=== PATIENT | male | born 1945 | race Caucasian/White ===

== ENCOUNTER → 2018-02-18 | Outpatient (CLI) | payer MEDICARE, BC ==
[2018-02-18 18:36] LABS: Basophils % (A) 0 %; Eosinophils # (A) 0.8 k/uL (0-0.7); Eosinophils % (A) 11 %; HCT 32.8 % (39.0-53.0); HGB 10.4 gm/dL (13.0-17.5); Hypochromasia Moderate; Lymphocytes # (A) 1.4 k/uL (1.0-4.8); Lymphocytes % (A) 19 %; MCH 27.8 pg (25.0-35.0); MCHC 31.7 g/dL (31.0-37.0); MCV 87.7 fL (80.0-100.0); Mean Platelet Volume 6.6; Monocytes # (A) 0.6 k/uL (0-1.0); Monocytes % (A) 8 %; Neutrophils # (A) 4.3 k/uL (1.3-7.7); Neutrophils % (A) 60 %; Platelet Count 437 k/uL (150-450); RBC 3.74 m/uL (4.30-5.90); RDW 13.8 % (11.5-15.5); WBC 7.1 k/uL (3.8-10.6)
[2018-02-18 20:16] LABS: Erythrocyte Sedimentation Rate 45 mm/hr (0-15)
[2018-02-19 02:48] LABS: Albumin 4.2 g/dL (3.80-4.90); Albumin/Globulin Ratio 1.62 (1.20-2.10); Calcium 9.5 mg/dL (8.7-10.3); Globulin 2.6 g/dL (2.1-3.7); Potassium 4.8 mmol/L (3.5-5.5); Total Bilirubin 0.3 mg/dL (0.2-1.2); Total Protein 6.8 g/dL (6.2-8.2)
[2018-02-19 02:55] LABS: Rheumatoid Factor 8 IU/mL (0-15)
[2018-02-19 03:14] LABS: Cyclic Citrullinated Pep IgG NEGATIVE (NEGATIVE)
[2018-02-20 04:23] LABS: Angiotensin-1 Converting Enz. 36 U/L (8-52)
[2018-02-20 14:36] LABS: C-ANCA <1:20 Titer (<1:20); P-ANCA <1:20 Titer (<1:20)
== END | disposition home or self-care (01) ==
LOC: LABWHC1 16:52
PROVIDERS: ATTEND Internal Medicine
DX: R91.8 Other nonspecific abnormal finding of lung field (principal)
CPT/HCPCS: 36415; 80053; 82164; 85025; 85652; 86038; 86200; 86235; 86255; 86431

== ENCOUNTER → 2018-04-17 | Outpatient (CLI) | payer MEDICARE, BC ==
--- NOTE | 2018-04-17 15:48 | CT ---
EXAMINATION TYPE: CT chest w con DATE OF EXAM: 04/17/2018 COMPARISON: None HISTORY: Nodules CT DLP: 453.2 mGycm Automated exposure control for dose reduction was used. CONTRAST: CT scan of the chest is performed with IV Contrast, patient injected with 100 mL of Isovue 300. FINDINGS: LUNGS: Nodular density right upper lobe measuring 1.7 x 1.6 cm. Right upper lobe medially noted is an 8.3 mm nodule. Pleural-based soft tissue left upper lobe anteriorly measuring 4.0 x 2.1 cm.Pleural-b ased nodule left lower lobe medially measuring 2.4 x 2.0 cm. Postsurgical changes of partial pneumone ctomy on the left. The lungs are otherwise clear. MEDIASTINUM: There are no greater than 1 cm hilar or mediastinal lymph nodes. No pericardial effusi on is seen. Thoracic aorta is of normal caliber. The heart is not enlarged. UPPER ABDOMEN: No significant abnormality appreciated. OTHER: No additional significant abnormality is seen. IMPRESSION: 1. Postsurgical changes of partial left-sided pneumonectomy with areas of masslike pleural thickening and pleural-based nodularity left lung. Right lung demonstrates nodular densities as discussed. Queta gnancy is not excluded. Consider PET/CT, tissue diagnosis and/or short-term 3 month follow-up.
== END | disposition home or self-care (01) ==
LOC: RADCTMAIN 08:08
PROVIDERS: ATTEND Internal Medicine
DX: R91.8 Other nonspecific abnormal finding of lung field (principal); Z90.2 Acquired absence of lung [part of]
CPT/HCPCS: 82565; 84520; 71260; 36415; Q9967

== ENCOUNTER → 2018-04-23 | Outpatient (CLI) | payer MEDICARE, BC ==
[2018-04-24 05:05] LABS: HIV 1 AB Non-Reactive (Non-Reactive); HIV AB P24 Non-Reactive (Non-Reactive); HIV P24 AG Non-Reactive (Non-Reactive)
== END | disposition home or self-care (01) ==
LOC: LABWHC1 16:23
PROVIDERS: ATTEND Internal Medicine Infectious Disease
DX: R91.1 Solitary pulmonary nodule (principal)
CPT/HCPCS: 36415; 82784; 86360; 87390

== ENCOUNTER → 2018-08-17 | Outpatient (CLI) | payer MEDICARE, BC ==
[2018-08-17 10:50] LABS: Blood Urea Nitrogen 14 mg/dL (9-20)
--- NOTE | 2018-08-17 11:20 | CT ---
EXAMINATION TYPE: CT chest w con DATE OF EXAM: 08/17/2018 COMPARISON: Prior chest CT April 17, 2018. HISTORY: Abnormal prior CT. CT DLP: 516.6 mGycm. Automated Exposure Control for Dose Reduction was Utilized. TECHNIQUE: CT scan of the thorax is performed following with IV Contrast, patient injected with 100 mL of Isovue 300. FINDINGS: LUNGS: Scarlike nodule or nodular opacification posterior right upper lobe is stable measuring 2.9 x 1.1 cm axial image 22 accounting for technical differences as it is difficult to actually measure due to the elongated appearance. There is additional linear scarring in the superior medial right lower lobe redemonstrated just inferior to this. Small nodule abutting mediastinum axial image 22 anteriorl y is less prominent. Pleural-based thickening or nodularity axial image 25 is less prominent measuring 1.8 x 0.8 cm curren t study. Postsurgical change left mid lung anteriorly with nodular scarring axial image 35 measuring 1.6 x 0.8 cm is stable. Posterior medial left basilar masslike scarring is diminished in size on prio r study image 48 versus prior with inferior lateral extension to diaphragm redemonstrated. No new nod ules or masses are present. No pleural effusion or pneumothorax is noted. MEDIASTINUM: There are no greater than 1 cm hilar or mediastinal lymph nodes. No pericardial effusi on is seen. Stable mild cardiomegaly. Calcifications at level of aortic valve are redemonstrated. Th ere is severe calcification or stent in the LAD again seen. OTHER: Cholecystectomy clips are redemonstrated. IMPRESSION: Interval stability or improvement as detailed above favoring posttreatment change and/or treated neoplasm. No new suspicious masses or adenopathy or enlarging lesions identified to suggest n eoplastic recurrence. If older outside CT or PET CT is not available would advise repeat CT in 6-12 m onths time to document further stability.
[2018-08-17 18:04] LABS: Hepatitis A Antibody IgM Non-Reactive (Non-Reactive); Hepatitis B Core IgM Non-Reactive (Non-Reactive)
== END | disposition home or self-care (01) ==
LOC: RADCTMAIN 09:37
PROVIDERS: ATTEND Internal Medicine
DX: R91.8 Other nonspecific abnormal finding of lung field (principal); D86.9 Sarcoidosis, unspecified; Z98.890 Other specified postprocedural states
CPT/HCPCS: 80074; 82565; 84520; 71260; Q9967

== ENCOUNTER → 2018-12-30 | Outpatient (CLI) | payer MEDICARE, BC ==
--- NOTE | 2018-12-30 16:40 | CT ---
EXAMINATION TYPE: CT chest w con DATE OF EXAM: 12/30/2018 COMPARISON: Prior chest CT August 17, 2018 and older study April 17, 2018. Chest x-ray December 10, 2018. HISTORY: Cough and difficulty breathing. Recent abnormal chest x-ray. CT DLP: 530 mGycm. Automated Exposure Control for Dose Reduction was Utilized. TECHNIQUE: CT scan of the thorax is performed following with IV Contrast, patient injected with 100m l mL of Isovue 300. FINDINGS: LUNGS: Corresponding to chest x-ray abnormality there is persistent prominent pericardial fat pad ata ng the left heart border with linear density or calcification. There is adjacent anterior left mid to lower lung linear scarring. There is posterior medial left basilar linear scarring with linear densi ty. Stable 3 mm subpleural left lower lobe nodule axial image 38. Stable posterior right upper lung s car like opacity axial image 19 measuring nearly 2 cm long axis. No pleural effusion or pneumothorax. MEDIASTINUM: There are no greater than 1 cm hilar or mediastinal lymph nodes. No pericardial effusi on is seen. Stable mild cardiomegaly. Mild calcification at level of aortic valve redemonstrated. Co ronary artery calcification and/or stents again seen. OTHER: Cholecystectomy clips are redemonstrated. IMPRESSION: Overall stable findings, chronic changes redemonstrated. No new concerning mass or adenop athy noted.
== END | disposition home or self-care (01) ==
LOC: RADCTMAIN 15:22
PROVIDERS: ATTEND Internal Medicine
DX: R91.8 Other nonspecific abnormal finding of lung field (principal); Z88.0 Allergy status to penicillin; Z88.6 Allergy status to analgesic agent
CPT/HCPCS: 82565; 84520; 71260; 36415; Q9967

== ENCOUNTER → 2019-01-04 | Outpatient (CLI) | payer MEDICARE, BC ==
[2019-01-04 22:53] LABS: Cat Epith & Dander IgE <0.10 kU/L; Dermato. farinae IgE <0.10 kU/L; Dog Dander IgE <0.10 kU/L
[2019-01-04 22:54] LABS: Aspergillus fumagatus IgE <0.10 kU/L; Cladosporian herbarum IgE <0.10 kU/L; Cockroach IgE 0.37 kU/L
[2019-01-04 22:55] LABS: Alternaria alternata IgE <0.10 kU/L; Birch IgE <0.10 kU/L; Maple (Box Elder) IgE <0.10 kU/L
[2019-01-04 22:56] LABS: Elm IgE <0.10 kU/L; Oak IgE <0.10 kU/L
[2019-01-04 22:57] LABS: Ragweed,Common IgE <0.10 kU/L
[2019-01-04 22:58] LABS: Red Top (Bentgrass) IgE <0.10 kU/L
== END | disposition home or self-care (01) ==
LOC: LABWHC1 11:23
PROVIDERS: ATTEND Internal Medicine Critical Care Medicine
DX: R06.00 Dyspnea, unspecified (principal)
CPT/HCPCS: 36415; 82164; 82785; 86003

== ENCOUNTER → 2019-02-09 | Outpatient (CLI) | payer MEDICARE, BC ==
--- NOTE | 2019-02-09 11:18 | ECHOF ---
Referral Reason:I27.20 pulmonary hypertension MEASUREMENTS -------- HEIGHT: 180.3 cm WEIGHT: 101.2 kg BP: 158/82 RVIDd: 3.4 cm (< 3.3) IVSd: 1.4 cm (0.6 - 1.1) LVIDd: 3.2 cm (3.9 - 5.3) LVPWd: 1.3 cm (0.6 - 1.1) IVSs: 1.7 cm LVIDs: 2.7 cm LVPWs: 1.7 cm LA Diam: 3.5 cm (2.7 - 3.8) LAESV Index (A-L): 16.12 ml/m Ao Diam: 3.4 cm (2.0 - 3.7) AV Cusp: 2.1 cm (1.5 - 2.6) MV EXCURSION: 15.965 mm (> 18.000) MV EF SLOPE: 24 mm/s (70 - 150) EPSS: 0.6 cm MV E Devin: 0.39 m/s MV DecT: 436 ms MV A Devin: 0.62 m/s MV E/A Ratio: 0.63 RAP: 5.00 mmHg RVSP: 23.88 mmHg TAPSE: 14.84 mm FINDINGS -------- Sinus rhythm. This was a technically adequate study. The left ventricular size is normal. There is moderate concentric left ventricular hypertrophy. O verall left ventricular systolic function is normal with, an EF between 55 - 60 %. The right ventricle is mildly enlarged. Normal LA size by volume 22+/-6 ml/m2. The right atrium is normal in size. Lipomatous Hypertrophy of the atrial septum is present There is mild aortic valve sclerosis. Mild mitral regurgitation is present. Mild tricuspid regurgitation present. Right ventricular systolic pressure is normal at < 35 mmHg. The pulmonic valve was not well visualized. The aortic root size is normal. IVC Not well visulized. There is no pericardial effusion. CONCLUSIONS -------- 1. Sinus rhythm. 2. This was a technically adequate study. 3. The left ventricular size is normal. 4. There is moderate concentric left ventricular hypertrophy. 5. Overall left ventricular systolic function is normal with, an EF between 55 - 60 %. 6. The right ventricle is mildly enlarged. 7. Normal LA size by volume 22+/-6 ml/m2. 8. The right atrium is normal in size. 9. Lipomatous Hypertrophy of the atrial septum is present 10. There is mild aortic valve sclerosis. 11. Mild mitral regurgitation is present. 12. Mild tricuspid regurgitation present. 13. Right ventricular systolic pressure is normal at < 35 mmHg. 14. The pulmonic valve was not well visualized. 15. The aortic root size is normal. 16. IVC Not well visulized. 17. There is no pericardial effusion. RIGGING UP WORKER: Diane Barnett RDCS
== END | disposition home or self-care (01) ==
LOC: RADECHMAIN 10:12
PROVIDERS: ATTEND Internal Medicine
DX: I08.1 Rheumatic disorders of both mitral and tricuspid valves (principal); I27.20 Pulmonary hypertension, unspecified
CPT/HCPCS: 93306

== ENCOUNTER → 2019-02-17 | Outpatient (CLI) | payer MEDICARE, BC ==
[2019-02-17 14:17] LABS: HCT 38.1 % (39.0-53.0); MCHC 31.5 g/dL (31.0-37.0); Mean Platelet Volume 6.7; Platelet Count 317 k/uL (150-450); RBC 4.28 m/uL (4.30-5.90); WBC 16.7 k/uL (3.8-10.6)
[2019-02-17 14:35] LABS: Potassium 4.9 mmol/L (3.5-5.1)
== END | disposition home or self-care (01) ==
LOC: LABPAT 13:05
PROVIDERS: ATTEND Internal Medicine Interventional Cardiology
DX: Z01.812 Encounter for preprocedural laboratory examination (principal); I25.10 Atherosclerotic heart disease of native coronary artery without angina pectoris
CPT/HCPCS: 36415; 80051; 82565; 84520; 85027

== ENCOUNTER 2019-02-23 07:44 | Day surgery (SDC) | payer MEDICARE, BC ==
[2019-02-19 14:56] VITALS: BMI 31.2
[~2019-02-23 07:44] MED LIST: ALPRAZolam 0.25 MG TAB PO PRN; ALPRAZolam 0.5 MG TAB PO PRN; ASPIRIN 325 MG TAB PO STA; ATORVASTATIN 80 MG TAB PO STA; NITROGLYCERIN SL TABS 0.4 MG TAB SUBLINGUAL PRN; SODIUM CHLORIDE 0.9% 1,000 ML in EMPTY BAG 1 BAG IV ONE
[2019-02-23 08:20] VITALS: TEMP 97.7
[2019-02-23] MEDS ORDERED: SODIUM CHLORIDE 0.9% 1,000 ML IV ONE (08:21)
[2019-02-23] MEDS ORDERED: LIDOCAINE 1% INJ 10MG/ML (20 ML MDV) ONE ×2 (08:34→09:25)
[2019-02-23] MEDS: MIDAZOLAM 2 MG/2 ML VIAL IV ONE ×2 (08:58→09:02)
[2019-02-23] MEDS ORDERED: LIDOCAINE 1% INJ 10MG/ML (20 ML MDV) SQ ONE ×3 (08:59→09:26)
[2019-02-23] MEDS ORDERED: MIDAZOLAM 2 MG/2 ML VIAL IV ONE (09:08)
[2019-02-23] MEDS ORDERED: IOPAMIDOL-370 125ML BTL INJ ONE (09:24)
[2019-02-23] MEDS ORDERED: RX INFO: IV CONTRAST WAS GIVEN 1 EACH MISC MISCELLANE PRN (09:39)
[2019-02-23] MEDS ORDERED: SODIUM CHLORIDE 0.9% 1,000 ML IV SCH (09:45)
--- NOTE | 2019-02-23 09:47 | P.CARDCATH ---
Date of Procedure: 02/23/19 Operative Findings: CARDIAC CATHETERIZATION PERFORMING PHYSICIAN: Gonzales Bobo MD, RPVI PROCEDURE PERFORMED: 1. Selective right and left coronary angiogram 2. Left heart catheterization 3. Right heart catheterization3. INDICATION: This is a pleasant 73-year-old gentleman with history of coronary artery disease and prior stenting of the LAD was performed at [facility] who was referred to me for further evaluation of shortness of breath. The patient continues to have shortness of breath with exertion which was felt to be out of proportion to his lung condition. He sees a liner assembler on regular basis, Dr. Beauchamp. Also he was experiencing chest discomfort with exertion concerning for severe underlying coronary artery disease. Because of that I did recommend proceeding with right and left heart catheterization COMPLICATION: None APPROACH: Right common femoral vein Right common femoral artery LEVEL OF SEDATION: Moderate with sedation duration of 30 minutes PROCEDURE DESCRIPTION: After obtaining an informed consent, the patient was brought to cardiac phlebotomist lab assistant. Local anesthesia was performed using lidocaine subcutaneously. The right common femoral vein was cannulated using micropuncture technique, the micropuncture wire passed easily then I placed an 8-Indonesian sheath over 035 wire. The right common femoral artery was cannulated using Seldinger technique, the guidewire passed easily, following that we advanced a 6 Indonesian sheath dilator assembly, the wire and dilator were removed and sheath was flushed. Subsequently I didn't right heart catheterization using 8-Indonesian [place] catheter. I had heart time advancing the catheter towards the pulmonary artery. Selective right and left coronary angiogram using a 6-Indonesian JR4 and JL catheters. Following that we did left heart catheterization using 6-Indonesian pigtail catheter . The procedure was completed there was no complication. SELECTIVE CORONARY ANGIOGRAM: The right coronary artery: The large caliber vessel and a dominant vessel. The RCA has mild disease in the proximal portion. The mid and distal portion appears to be angiographically normal. The RCA distally bifurcates into PDA and PLV branches and both appeared to be angiographically normal Left main: Is angiographically normal. Bifurcates into LCx, and LAD. The left circumflex: He is a large caliber vessel and nondominant vessel. It does have mild disease involving M2. OM1 is a large caliber vessel and work as a ramus intermedius and seems to be angiographically normal. Warm 3 appeared to be angiographically normal. The left anterior descending artery: It is a large caliber vessel. The proximal LAD appeared to be angiographically normal. The mid LAD is a stented and the stent is patent. The LAD distally appeared to be normal. The LAD in the midportion gives rises into a large diagonal branch which has an ostial disease appears to be in the range of 40% to 50%. HEMODYNAMICS: The right ventricular pressures were as follow systolic of 24 and end-diastolic of 6 mmHg The right atrial pressure was 5 mmHg The LVEDP was 8 mmHg CONCLUSION: 1. Normal right heart pressures 2. Patent stent in the mid LAD. Intermediate disease involving the first diagonal branch of the LAD. 3. Mild disease involving the right coronary artery POSTPROCEDURE MANAGEMENT: Giving the above anatomy, I recommended maximize medical treatment and follow-up with the patient
[2019-02-23 17:15] VITALS: BP 114/69; PULSE 70; RESP 16
== END 2019-02-23 17:10 | disposition home or self-care (01) ==
LOC: CATHCVL 07:44
PROVIDERS: ATTEND Internal Medicine Interventional Cardiology
DX: I25.110 Atherosclerotic heart disease of native coronary artery with unstable angina pectoris (principal); I10 Essential (primary) hypertension; Z87.891 Personal history of nicotine dependence; E78.5 Hyperlipidemia, unspecified; E78.00 Pure hypercholesterolemia, unspecified; Z95.5 Presence of coronary angioplasty implant and graft; J44.9 Chronic obstructive pulmonary disease, unspecified; Z82.49 Family history of ischemic heart disease and other diseases of the circulatory system; Z79.02 Long term (current) use of antithrombotics/antiplatelets; Z79.82 Long term (current) use of aspirin; Z79.52 Long term (current) use of systemic steroids; Z79.899 Other long term (current) drug therapy; Z88.0 Allergy status to penicillin
CPT/HCPCS: 93460; C1751; C1894 ×2; C1769; C1760; J2250; J2001; Q9967

== ENCOUNTER → 2019-12-15 | Outpatient (CLI) | payer MEDICARE, BC ==
--- NOTE | 2019-12-15 17:36 | CT ---
EXAMINATION TYPE: CT chest w con DATE OF EXAM: 12/15/2019 COMPARISON: CT chest 12/30/2018 HISTORY: Sarcoidosis. CT DLP: 710 mGycm Automated exposure control for dose reduction was used. CONTRAST: CT scan of the chest is performed with IV Contrast, patient injected with 100 mL of Isovue 300. FINDINGS: LUNGS: There is a soft tissue mass abutting the mediastinum at the right upper hemithorax measuring a pproximately 3.4 x 2.5 x 2.6 cm. Posteriorly along the fissure there is some probable scarring simila r to prior exam although there is some questionable nodularity at this level measuring 13 mm on axial image #18 the left lower lobe shows a nodular density in the subpleural location on axial image #44 measuring 2.5 cm, question an associated staple line at this level, there is volume loss in the left hemithorax, postop changes. There is no pleural effusion or pneumothorax seen. The tracheobronchial tree is patent. MEDIASTINUM: There are no greater than 1 cm hilar or mediastinal lymph nodes. No pericardial effusi on is seen. There are dense coronary artery calcifications. AORTA: No additional significant abnormality is seen. OTHER: No additional significant abnormality is seen. IMPRESSION: Bilateral soft tissue masses are new, consider bronchogenic carcinoma, metastatic diseas e, postop changes, correlate.
== END | disposition home or self-care (01) ==
LOC: RADCTMAIN 15:14
PROVIDERS: ATTEND Internal Medicine
DX: M79.89 Other specified soft tissue disorders (principal); D86.0 Sarcoidosis of lung
CPT/HCPCS: 82565; 84520; 71260; 36415; Q9967

== ENCOUNTER → 2019-12-16 | Outpatient (CLI) | payer MEDICARE, BC ==
[2019-12-16 13:54] LABS: Basophils % (A) 0 %; Eosinophils # (A) 0.1 k/uL (0-0.7); Eosinophils % (A) 1 %; HGB 10.9 gm/dL (13.0-17.5); Hypochromasia Moderate; Lymphocytes % (A) 9 %; MCH 24.8 pg (25.0-35.0); MCHC 30.3 g/dL (31.0-37.0); MCV 81.9 fL (80.0-100.0); Mean Platelet Volume 8.7; Monocytes # (A) 0.9 k/uL (0-1.0); Monocytes % (A) 8 %; Neutrophils % (A) 81 %; Platelet Count 252 k/uL (150-450); RDW 14.5 % (11.5-15.5); WBC 11.1 k/uL (3.8-10.6)
[2019-12-16 19:17] LABS: African American GFR (CKD) 86.2 (60.0-200.0); Albumin 4.1 g/dL (3.80-4.90); Albumin/Globulin Ratio 1.71 (1.60-3.17); Anion Gap 6.8 mmol/L (4.00-12.00); Calcium 9.6 mg/dL (8.7-10.3); Carbon Dioxide 27.2 mmol/L (21.6-31.8); Globulin 2.4 g/dL (1.6-3.3); Non-African American GFR(CKD) 74.3 (60.0-200.0); Potassium 4.4 mmol/L (3.5-5.5); Total Bilirubin 0.5 mg/dL (0.3-1.2); Total Protein 6.5 g/dL (6.2-8.2)
[2019-12-16 19:37] LABS: Erythrocyte Sedimentation Rate 13 mm/Hr (0-20)
== END | disposition home or self-care (01) ==
LOC: LABWHC1 12:41
PROVIDERS: ATTEND Internal Medicine Critical Care Medicine
DX: D86.0 Sarcoidosis of lung (principal)
CPT/HCPCS: 36415; 80053; 82164; 85025; 85652

== ENCOUNTER → 2020-04-17 | Outpatient (CLI) | payer MEDICARE, BC ==
--- NOTE | 2020-04-17 12:55 | CT ---
EXAMINATION TYPE: CT chest w con DATE OF EXAM: 04/17/2020 COMPARISON: CT chest December 15, 2019 and older studies HISTORY: Sarcoidosis of lung. CT DLP: 420.6 mGycm. Automated Exposure Control for Dose Reduction was Utilized. TECHNIQUE: CT scan of the thorax is performed following with IV Contrast, patient injected with 100 mL of Isovue M300. FINDINGS: LUNGS: Parenchymal scarring lung posterior aspect right upper lobe extending towards the right suprah ilar region is redemonstrated. There is improved focal mass or masslike consolidation in the anterior right upper lobe with some residual 2.4 x 1.1 cm nodule or nodular consolidation axial image 19. Adriana gical changes medial in the left mid to lower lung redemonstrated. There is additional surgical kapoor e in the posterior left lung base with resolution of prior visualized nodule or nodular consolidation . No new infiltrate. No pleural effusion or pneumothorax. MEDIASTINUM: There are no new greater than 1 cm hilar or mediastinal lymph nodes. No cardiomegaly o r pericardial effusion is seen. Coronary artery calcification is redemonstrated. Calcified suture in the mediastinal fat along the superior left aspect of the heart is redemonstrated. OTHER: Cholecystectomy clips are redemonstrated. Slight underlying scoliotic curvature with mild/mode rate multilevel spurring. IMPRESSION: Stable parenchymal fibrotic changes. No thoracic adenopathy. Improving bilateral nodules and/or nodular consolidation but some residual suspicious nodule or nodular consolidation anterior ri ght upper lobe. Consider PET CT evaluation to exclude neoplasm.
== END | disposition home or self-care (01) ==
LOC: RADCTMAIN 10:53
PROVIDERS: ATTEND Internal Medicine
DX: J84.10 Pulmonary fibrosis, unspecified (principal); R91.8 Other nonspecific abnormal finding of lung field; Z88.0 Allergy status to penicillin; Z88.5 Allergy status to narcotic agent
CPT/HCPCS: 82565; 84520; 71260; 36415; Q9967

== ENCOUNTER → 2020-07-07 | Outpatient (CLI) | payer MEDICARE, BC | END | disposition home or self-care (01) | LOC: LABWHC1 11:46 | PROVIDERS: ATTEND Internal Medicine | DX: R42 Dizziness and giddiness (principal) | CPT/HCPCS: 36415; 82607 ==

== ENCOUNTER → 2020-09-12 | Outpatient (CLI) | payer MEDICARE, BC ==
[2020-09-12 16:35] LABS: HCT 38.7 % (39.6-50.0); HGB 11.4 g/dL (13.0-17.0); MCH 25.3 pg (27.0-32.0); MCHC 29.5 g/dL (32.0-37.0); Mean Platelet Volume 12.3 fL (9.5-12.2); Platelet Count 266 X 10*3/uL (140-440); RDW 22.1 % (11.5-14.5); WBC 8.49 X 10*3/uL (4.50-10.00)
[2020-09-12 17:06] LABS: African American GFR (CKD) 76.8 (60.0-200.0); Albumin 4.3 g/dL (3.80-4.90); Albumin/Globulin Ratio 1.95 (1.60-3.17); Anion Gap 7.1 mmol/L (4.00-12.00); BUN/Creat Ratio 13.64 Ratio (12.00-20.00); Calcium 9.8 mg/dL (8.7-10.3); Carbon Dioxide 27.9 mmol/L (21.6-31.8); Chol/HDL Ratio 2.53; Globulin 2.2 g/dL (1.6-3.3); Magnesium 1.8 mg/dL (1.5-2.4); Non-African American GFR(CKD) 66.2 (60.0-200.0); Potassium 5.1 mmol/L (3.5-5.5); Total Bilirubin 0.5 mg/dL (0.3-1.2); Total Protein 6.5 g/dL (6.2-8.2)
[2020-09-12 17:35] LABS: Basophils # (A) 0.03 X 10*3/uL (0.00-0.10); Basophils % (A) 0.4 %; Eosinophils # (A) 0.15 X 10*3/uL (0.04-0.35); Eosinophils % (A) 1.8 %; Lymphocytes % (A) 15.3 %; Monocytes # (A) 0.74 X 10*3/uL (0.20-1.00); Monocytes % (A) 8.7 %; Neutrophils # (A) 6.23 X 10*3/uL (1.80-7.70); Neutrophils % (A) 73.3 %
== END | disposition home or self-care (01) ==
LOC: LABWHC1 08:11
PROVIDERS: ATTEND Nurse Practitioner Adult Health
DX: I10 Essential (primary) hypertension (principal); I25.10 Atherosclerotic heart disease of native coronary artery without angina pectoris; E78.5 Hyperlipidemia, unspecified
CPT/HCPCS: 36415; 80053; 80061; 83735; 84443; 84481; 85025

== ENCOUNTER → 2021-03-01 | Outpatient (CLI) | payer MEDICARE, BC ==
--- NOTE | 2021-03-01 15:59 | CT ---
EXAMINATION TYPE: CT chest w con DATE OF EXAM: 03/01/2021 COMPARISON: 04/17/2020 HISTORY: Sarcoidosis CT DLP: 645 mGycm, Automated exposure control for dose reduction was used. CONTRAST: Performed injected with 100 ml mL of Isovue 300. TECHNIQUE: Axial images were obtained at 5 mm thick sections. Reconstructed images are reviewed on [employer] computer in the coronal plane. FINDINGS: Portion of the thyroid visualized is normal. There is some mild streak opacity at the right posterior lung apex. There is a 1.9 x 2.5 cm soft tissue nodule in the posterior medial left lower lung field. This has en larged from the comparison. Additional workup for neoplasm is recommended. Previous density within the anterior medial right upper lung field has residual linear markings. This is diminished in size from comparison. No enlarged mediastinal or hilar adenopathy is evident. The ascending aorta diameter at the level o f the main pulmonary artery is 2.7 cm. The main pulmonary artery diameter at the bifurcation is 2.5 cm. Some coronary artery calcification is noted. Limited CT sections are obtained through the upper abdomen. Abdomen is essentially unremarkable. IMPRESSIONS: 1. Enlarging posterior left lung nodule. Additional workup for neoplasm is recommended. 2. Residual streak opacities within the right upper lung field, previous underlying right upper lobe mass appears to be resolving.
== END ==
LOC: RADCTMAIN 11:56
PROVIDERS: ATTEND Internal Medicine
DX: D86.0 Sarcoidosis of lung (principal); R91.8 Other nonspecific abnormal finding of lung field
CPT/HCPCS: 82565; 84520; 71260; 36415; Q9967

== ENCOUNTER → 2022-03-20 | Outpatient (CLI) | payer MEDICARE, BC ==
--- NOTE | 2022-03-20 14:39 | XR ---
EXAMINATION TYPE: XR chest 2V DATE OF EXAM: 03/20/2022 COMPARISON: 08/17/2021 TECHNIQUE: PA and lateral views submitted. HISTORY: Pulmonary sarcoidosis FINDINGS: Heart size is normal. Osseous structures intact. Atherosclerotic change aorta. There is left perihila r vague attenuation. No pleural effusion or pneumothorax. No interstitial edema. IMPRESSION: 1. There is vague left perihilar atelectasis or infiltrate consider follow-up CT scan if clinically w arranted.
== END | disposition home or self-care (01) ==
LOC: RADXRMAIN 14:25
PROVIDERS: ATTEND Internal Medicine Pulmonary Disease
DX: D86.0 Sarcoidosis of lung (principal)
CPT/HCPCS: 71046

== ENCOUNTER → 2022-07-04 | Outpatient (CLI) | payer MEDICARE, BC ==
[2022-07-04 22:50] LABS: HCT 36.9 % (39.6-50.0); HGB 10.8 g/dL (13.0-17.0); MCH 24.9 pg (27.0-32.0); MCHC 29.3 g/dL (32.0-37.0); NRBC Per 100 WBC 0 /100 WBCS (0.0-0.0); Platelet Count 314 X 10*3/uL (140-440); RBC 4.34 X 10*6/uL (4.40-5.60); RDW 15.5 % (11.5-14.5); WBC 7.42 X 10*3/uL (4.50-10.00)
[2022-07-04 23:15] LABS: African American GFR (CKD) 79.2 (60.0-200.0); Anion Gap 8.7 mmol/L (10.00-18.00); Blood Urea Nitrogen 19.2 mg/dL (9.0-27.0); Carbon Dioxide 27.4 mmol/L (20.0-27.5); Non-African American GFR(CKD) 68.3 (60.0-200.0); Potassium 4.9 mmol/L (3.5-5.5)
== END | disposition home or self-care (01) ==
LOC: LABPAT 14:27
PROVIDERS: ATTEND Internal Medicine Interventional Cardiology
DX: Z01.812 Encounter for preprocedural laboratory examination (principal); R06.02 Shortness of breath
CPT/HCPCS: 80051; 82565; 84520; 85027

== ENCOUNTER 2022-07-10 12:00 | Day surgery (SDC) | payer MEDICARE, BC ==
[~2022-07-10 12:00] MED LIST changes: +ASPIRIN 325 MG TAB PO ONE; -ASPIRIN 325 MG TAB PO STA; -ATORVASTATIN 80 MG TAB PO STA; -SODIUM CHLORIDE 0.9% 1,000 ML in EMPTY BAG 1 BAG IV ONE
[2022-07-10] MEDS: SODIUM CHLORIDE 0.9% 1,000 ML in EMPTY BAG 1 BAG IV SCH ×2 (12:26→20:24)
[2022-07-10] MEDS ORDERED: SODIUM CHLORIDE 0.9% 1,000 ML IV ONE (17:00)
[2022-07-10] MEDS ORDERED: VERAPAMIL 2.5 MG/ML 2 ML AMP ONE (18:10)
[2022-07-10] MEDS ORDERED: fentaNYL (PF) 50 MCG/ML 2 ML AMP ONE (18:22)
[2022-07-10] MEDS ORDERED: LIDOCAINE 1% INJ 10MG/ML (5 ML VIAL-PF) SQ ONE (18:31)
[2022-07-10] MEDS ORDERED: VERAPAMIL SYRINGE (5 MG/10 ML) INTRAARTER ONE (18:32)
[2022-07-10] MEDS ORDERED: MIDAZOLAM 2 MG/2 ML VIAL IV ONE (18:32)
[2022-07-10] MEDS ORDERED: LIDOCAINE 1% INJ 10MG/ML (20 ML MDV) ONE (18:41)
[2022-07-10] MEDS ORDERED: fentaNYL (PF) 50 MCG/ML 2 ML AMP IV ONE (18:45)
[2022-07-10] MEDS ORDERED: IOPAMIDOL-370 125ML BTL INJ ONE (18:51)
[2022-07-10] MEDS ORDERED: RX INFO: IV CONTRAST WAS GIVEN 1 EACH MISC MISCELLANE PRN (19:06)
--- NOTE | 2022-07-10 19:12 | P.PCN ---
Date of Procedure: 07/10/22 Operative Findings: CARDIAC CATHETERIZATION PERFORMING PHYSICIAN: Gonzales Bobo MD, RPVI PROCEDURE PERFORMED: 1. Selective right and left coronary angiogram 2. Left heart catheterization 3. Selective right radial and right common femoral artery angiogram INDICATION: Shortness of breath and 76-year-old gentleman who underwent myocardial perfusion imaging stress test showed anterolateral ischemia COMPLICATION: None APPROACH: Right radial artery LEVEL OF SEDATION: Moderate with a sedation length of 27 minutes PROCEDURE DESCRIPTION: After obtaining an informed consent, the patient was brought to cardiac feed mill lab technician. Local anesthesia was performed using lidocaine subcutaneously. The right radial artery was cannulated using Seldinger technique, the guidewire passed easily, following that we advanced a 5-Jordanian sheath dilator assembly, the wire and dilator were removed and sheath was flushed. Attempting advancing an 035 wire was unsuccessful at the right brachial artery. I did inject contrast but the radial artery becomes a small. The catheter would not follow the wire. For that reason I accessed the right common femoral artery using micropuncture technique, the micropuncture wire passed easily then I placed a 6-Jordanian sheath. Selective right and left coronary angiogram using a 6-Jordanian JR4 and JL 4 catheters. Following that we did left heart catheterization using 6-Jordanian pigtail catheter. The procedure was completed there was no complication. SELECTIVE CORONARY ANGIOGRAM: The right coronary artery: Large caliber vessel and a dominant vessel. The RCA proximally appears to have mild disease only. In the midportion appears to be angiographically normal and distally is angiographically normal. Gives rises after that into PDA and PLV branches. The PLV branch appears to have mild disease only. The PDA branch has diffuse disease up to about 60% in the midportion. Left main: Is angiographically normal. Bifurcates into an LCx and LAD The left circumflex: Large caliber vessel nondominant vessel. The LCx is angiographically normal. Gives rises into OM1 and OM to both appeared to be angiographically normal. Distally bifurcates into PDA and PLV branches both appeared to be angiographically normal. The left anterior descending artery: The proximal LAD appeared to have mild disease only. The mid LAD is a stented and the stent is patent. The LAD in the midportion gives rises into a diagonal branch which appeared to be jailed by the stent and has an ostial lesion appeared to be in the range of 60%. HEMODYNAMICS: The LVEDP was about 6 mmHg was no significant gradient across aortic valve CONCLUSION: 1. Intermediate disease involving the PDA branch of the right coronary artery appears to be in the range of 60% 2. Patent stent in the mid LAD. Intermediate disease involving the first diagonal branch of the LAD which has jailed by the stent POSTPROCEDURE MANAGEMENT: Medical treatment Consider FFR of the PDA if the patient remains symptomatic
[2022-07-10] MEDS ORDERED: SODIUM CHLORIDE 0.9% 1,000 ML IV SCH (19:15)
[2022-07-11 03:07] VITALS: PULSE 58
[2022-07-11] MEDS: SODIUM CHLORIDE 0.9% 1,000 ML in EMPTY BAG 1 BAG IV SCH (03:18)
[2022-07-11 07:41] VITALS: BP 151/75; RESP 18; TEMP 98.6
[2022-07-11 07:41] LABS: Basophils % (A) 0 %; Eosinophils # (A) 0.2 k/uL (0-0.7); Eosinophils % (A) 2 %; HCT 37.2 % (39.0-53.0); HGB 11.7 gm/dL (13.0-17.5); Hypochromasia Slight; Lymphocytes # (A) 1.3 k/uL (1.0-4.8); Lymphocytes % (A) 20 %; MCH 26.1 pg (25.0-35.0); MCHC 31.5 g/dL (31.0-37.0); MCV 82.8 fL (80.0-100.0); Monocytes # (A) 0.6 k/uL (0-1.0); Monocytes % (A) 9 %; Neutrophils # (A) 4.4 k/uL (1.3-7.7); Neutrophils % (A) 67 %; Platelet Count 298 k/uL (150-450); RBC 4.49 m/uL (4.30-5.90); RDW 15.4 % (11.5-15.5); WBC 6.5 k/uL (3.8-10.6)
[2022-07-11 07:55] LABS: African American GFR (CKD) 85 (>60 ml/min/1.73 sqM); Anion Gap 8 mmol/L; Blood Urea Nitrogen 13 mg/dL (9-20); Calcium 9.4 mg/dL (8.4-10.2); Carbon Dioxide 26 mmol/L (22-30); Chloride 103 mmol/L (98-107); Glucose 98 mg/dL (74-99); Non-African American GFR(CKD) 73 (>60 ml/min/1.73 sqM); Potassium 4.2 mmol/L (3.5-5.1); Sodium 137 mmol/L (137-145)
--- NOTE | 2022-07-11 20:52 | P.DS ---
Providers Attending physician: Gonzales Bobo Primary care physician: [facility]J. [facility] Hospital Course: The patient is a pleasant 76-year-old gentleman who underwent heart catheterization yesterday late and he was kept overnight. He was seen this morning. The right groin is soft and nontender with no bruises. The patient is going to be discharged home and I will follow-up with the patient in a week Plan - Discharge Summary Discharge Rx Participant: No New Discharge Prescriptions: Continue FLUoxetine HCL [PROzac] 20 mg PO DAILY Aspirin 81 mg PO DAILY Tamsulosin [Flomax] 0.4 mg PO DAILY Omeprazole [PriLOSEC] 20 mg PO DAILY predniSONE 2.5 mg PO DAILY atenoloL [Tenormin] 50 mg PO DAILY metHOTREXate sodium [Methotrexate] 10 mg PO FR Ezetimibe [Zetia] 10 mg PO DAILY tadalafiL 5 mg PO DAILY Olmesartan [Benicar] 20 mg PO DAILY Folic Acid 1 mg PO DAILY Leucovorin Calcium 5 mg PO DAILY Discharge Medication List Aspirin 81 mg PO DAILY 02/19/19 [History] FLUoxetine HCL [PROzac] 20 mg PO DAILY 02/19/19 [History] Omeprazole [PriLOSEC] 20 mg PO DAILY 02/19/19 [History] Tamsulosin [Flomax] 0.4 mg PO DAILY 02/19/19 [History] atenoloL [Tenormin] 50 mg PO DAILY 02/19/19 [History] predniSONE 2.5 mg PO DAILY 02/19/19 [History] Ezetimibe [Zetia] 10 mg PO DAILY 07/08/22 [History] Folic Acid 1 mg PO DAILY 07/08/22 [History] Leucovorin Calcium 5 mg PO DAILY 07/08/22 [History] Olmesartan [Benicar] 20 mg PO DAILY 07/08/22 [History] metHOTREXate sodium [Methotrexate] 10 mg PO FR 07/08/22 [History] tadalafiL 5 mg PO DAILY 07/08/22 [History] Follow up Appointment(s)/Referral(s): Gonzales Bobo MD [STAFF PHYSICIAN] - 1 Week (APPOINTMENT MADE ON July @ 2:30PM ) Patient Instructions/Handouts: *Surgery [facility] - After Heart Catheterization - Sock Knitting Machine Operator Instructions, Moderate Sedation (DC), After Radial Heart Catheterization (GEN) Activity/Diet/Wound Care/Special Instructions: *NO LIFTING, PUSHING, OR PULLING ANYTHING OVER 5 POUNDS FOR 5 DAYS *NO DRIVING FOR 3 DAYS *YOU CAN SHOWER TOMORROW BUT DO NOT SUBMERSE YOUR PUNCTURE SITE IN WATER FOR A FEW DAYS TO PREVENT INFECTION - SO NOT TUB BATHS, POOLS, HOT TUBS, DISHES..ETC *ANY SIGNS OF BLEEDING (HARDNESS, SWELLING, OR EXCESSIVE BRUISING) HOLD DIRECT PRESSURE ON YOUR PUNCTURE SITE AND COME TO THE NEAREST EMERGENCY ROOM TO GET YOUR PUNCTURE SITE LOOKED AT - DO NOT DRIVE YOURSELF! EITHER CALL EMS OR HAVE SOMEONE DRIVE YOU! Discharge Disposition: HOME SELF-CARE
== END 2022-07-11 10:15 | disposition home or self-care (01) ==
LOC: CATHCVL 12:00 → 6NMEDSUR 18:57 → CATHCVL 07-11 10:15
PROVIDERS: ATTEND Internal Medicine Interventional Cardiology
DX: I25.10 Atherosclerotic heart disease of native coronary artery without angina pectoris (principal); I25.9 Chronic ischemic heart disease, unspecified; Z95.5 Presence of coronary angioplasty implant and graft; I10 Essential (primary) hypertension; E78.5 Hyperlipidemia, unspecified; D86.0 Sarcoidosis of lung; Z88.0 Allergy status to penicillin; F17.210 Nicotine dependence, cigarettes, uncomplicated; Z82.49 Family history of ischemic heart disease and other diseases of the circulatory system; Z79.82 Long term (current) use of aspirin; Z79.899 Other long term (current) drug therapy
CPT/HCPCS: 93458; 99152; 99153; 80048; 85025; J2250; J2001; J3010; Q9967

== ENCOUNTER → 2022-08-27 | Outpatient (CLI) | payer MEDICARE, BC ==
--- NOTE | 2022-08-27 19:16 | CT ---
EXAMINATION TYPE: CT chest wo con DATE OF EXAM: 08/27/2022 COMPARISON: 03/01/2021 HISTORY: Sarcoidosis CT DLP: 701 mGycm, Automated exposure control for dose reduction was used. CONTRAST: None TECHNIQUE: Axial images were obtained at 5 mm thick sections. Reconstructed images are reviewed on [employer] computer in the coronal plane. FINDINGS: Portion of the thyroid visualized is normal. There is a new peripheral posterior medial right upper lung field pleural-based nodule measuring 1.0 cm. Series 4 image 15. Some pneumonitis type changes in the posterior right upper lung field all present previously. There is a new 1.1 cm nodule anterior right upper lung field. Couple of punctate nodularities or with in the anterior right lung. Series 4 image 20. Some scarring is at the lingula near the base. There is a 2.8 x 3.3 cm nodule with irregular borders in the posterior medial left lung base. Series 4 image 38. This is larger than the previous smooth lincoln rdered nodule in the posterior medial left lung measuring 2.0 x 2.4 cm. Consider evaluation of this n odule. No enlarged mediastinal or hilar adenopathy is evident. The ascending aorta diameter at the level o f the main pulmonary artery is 3.7 cm. The main pulmonary artery diameter at the bifurcation is 2.[address] sections are obtained through the upper abdomen. Abdomen is essentially unremarkable. IMPRESSIONS: 1. Previous left lower lobe nodule has enlarged with somewhat more irregular borders on the current e xamination. Additional evaluation is recommended. Neoplasm is not excluded on the basis of this exami nation. A change in nodule from sarcoidosis could be considered. 2. Additional new nodules within the right apex. The pneumonitis changes in the right upper lobe lobe appear similar. 3. No suspicious mediastinal adenopathy.
== END | disposition home or self-care (01) ==
LOC: RADCTMAIN 09:02
PROVIDERS: ATTEND Internal Medicine Pulmonary Disease
DX: D86.0 Sarcoidosis of lung (principal); J84.9 Interstitial pulmonary disease, unspecified; R91.8 Other nonspecific abnormal finding of lung field
CPT/HCPCS: 71250; 94060; 94726; 94729

== ENCOUNTER → 2022-10-21 | Outpatient (CLI) | payer MEDICARE, BC ==
[2022-10-21 16:07] LABS: ALT 54 U/L (10-49); AST 37 U/L (14-35); Albumin 4.2 d/dL (3.8-4.9); Albumin/Globulin Ratio 1.68 Ratio (1.60-3.17); Alkaline Phosphatase 84 U/L (41-126); BUN/Creat Ratio 16.38 Ratio (12.00-20.00); Blood Urea Nitrogen 21.3 mg/dL (9.0-27.0); Calcium 10.3 mg/dL (8.7-10.3); Carbon Dioxide 26.4 mmol/L (21.6-31.8); Chloride 102 mmol/L (96-109); Globulin 2.5 d/dL (1.6-3.3); Glucose 116 mg/dL (70-110); Potassium 5.7 mmol/L (3.5-5.5); Sodium 137 mmol/L (135-145); Total Bilirubin 0.3 mg/dL (0.3-1.2); Total Protein 6.7 d/dL (6.2-8.2)
[2022-10-21 16:47] LABS: Basophils # (A) 0.04 X 10*3/uL (0.00-0.10); Basophils % (A) 0.4 %; Eosinophils # (A) 0.06 X 10*3/uL (0.04-0.35); Eosinophils % (A) 0.6 %; HCT 38.2 % (39.6-50.0); HGB 11.5 d/dL (12.0-15.0); Lymphocytes # (A) 0.69 X 10*3/uL (0.90-5.00); Lymphocytes % (A) 7.4 %; MCH 25.2 pg (27.0-32.0); MCHC 30.1 d/dL (32.0-37.0); MCV 83.6 FL (80.0-97.0); Mean Platelet Volume 11.3 FL (9.5-12.2); Monocytes # (A) 0.44 X 10*3/uL (0.20-1.00); Monocytes % (A) 4.7 %; NRBC Per 100 WBC 0 X 10*3/uL (0.00-0.01); Neutrophils # (A) 8.03 X 10*3/uL (1.80-7.70); Neutrophils % (A) 86.3 %; Platelet Count 312 X 10*3/uL (140-440); RBC 4.57 X 10*6/uL (4.40-5.60); RDW 18.3 % (11.5-14.5); WBC 9.32 X 10*3/uL (4.50-10.00)
== END | disposition home or self-care (01) ==
LOC: LABWHC1 10:15
PROVIDERS: ATTEND Internal Medicine
DX: D86.9 Sarcoidosis, unspecified (principal)
CPT/HCPCS: 36415; 80053; 82164; 85025

== ENCOUNTER → 2022-10-24 | Outpatient (CLI) | payer MEDICARE, BC | END | disposition home or self-care (01) | LOC: LABWHC1 10:36 | PROVIDERS: ATTEND Internal Medicine | DX: E87.5 Hyperkalemia (principal) | CPT/HCPCS: 36415; 84132 ==

== ENCOUNTER → 2023-02-26 | Outpatient (CLI) | payer MEDICARE, BC ==
--- NOTE | 2023-02-27 09:40 | CT ---
EXAMINATION TYPE: CT chest wo con DATE OF EXAM: 02/26/2023 COMPARISON: 08/27/2022 HISTORY: Upper chest tightness, hx of sarcoidosis CT DLP: 477.2 mGycm. Automated Exposure Control for Dose Reduction was Utilized. TECHNIQUE: CT scan of the thorax is performed without IV contrast. FINDINGS: LUNGS: Bilateral areas of subsegmental consolidation and pleural thickening are again noted. The nodu le in the right upper lobe has resolved and was therefore likely was postinflammatory. A surgical gene nge involving the left lung along the posterior medial left lung there is near complete resolution wi th some residual attenuation likely representing resolving scarring or atelectasis. No suspicious pul monary nodules. No pneumothorax or pleural effusion.. The tracheobronchial tree is patent. MEDIASTINUM: Lack of IV contrast is noted to limit evaluation for mediastinal and especially hilar ad enopathy. There are no definitive greater than 1 cm hilar or mediastinal lymph nodes. Ectasia of the thoracic aorta measuring 3.8 cm. There is dense coronary artery calcification and mild cardiomegaly. Small hiatal hernia.. OTHER: Surgical clips in the gallbladder fossa. Multilevel hypertrophic and degenerative changes of t he spine. Bilateral glenohumeral joint arthropathy. Small hiatal hernia. IMPRESSION: 1. Interval near-complete resolution posterior medial left lower lobe area of consolidation with some residual attenuation likely representing chronic atelectasis or scar. 2. A 1 cm nodule in the right upper lobe has resolved. 3. Persistent scattered areas of consolidation suspected to most likely on the basis of scarring, ate lectasis or postinflammatory correlate clinically to exclude infectious etiology. 4. Dense coronary artery calcification.
== END | disposition home or self-care (01) ==
LOC: RADCTMAIN 16:03
PROVIDERS: ATTEND Internal Medicine Pulmonary Disease
DX: D86.0 Sarcoidosis of lung (principal); I25.10 Atherosclerotic heart disease of native coronary artery without angina pectoris; R91.8 Other nonspecific abnormal finding of lung field
CPT/HCPCS: 71250

== ENCOUNTER → 2023-06-04 | Outpatient (CLI) | payer MEDICARE, BC ==
[2023-06-05 02:20] LABS: Basophils # (A) 0.04 X 10*3/uL (0.00-0.10); Basophils % (A) 0.5 %; Eosinophils # (A) 0.08 X 10*3/uL (0.04-0.35); HCT 38.4 % (39.6-50.0); HGB 12.2 g/dL (13.0-17.0); Lymphocytes # (A) 1.32 X 10*3/uL (0.90-5.00); Lymphocytes % (A) 15.7 %; MCH 30.3 pg (27.0-32.0); MCHC 31.8 g/dL (32.0-37.0); MCV 95.5 FL (80.0-97.0); Mean Platelet Volume 11.6 FL (9.5-12.2); Monocytes # (A) 0.72 X 10*3/uL (0.20-1.00); Monocytes % (A) 8.6 %; NRBC Per 100 WBC 0 X 10*3/uL (0.00-0.01); Neutrophils # (A) 6.21 X 10*3/uL (1.80-7.70); Neutrophils % (A) 73.8 %; Platelet Count 272 X 10*3/uL (140-440); RBC 4.02 X 10*6/uL (4.40-5.60); RDW 15.2 % (11.5-14.5)
[2023-06-05 03:00] LABS: ALT 34 U/L (10-49); AST 29 U/L (14-35); Albumin 4.2 g/dL (3.8-4.9); Albumin/Globulin Ratio 1.83 Ratio (1.60-3.17); Alkaline Phosphatase 83 U/L (41-126); BUN/Creat Ratio 16.45 Ratio (12.00-20.00); Blood Urea Nitrogen 18.1 mg/dL (9.0-27.0); Calcium 10.5 mg/dL (8.7-10.3); Carbon Dioxide 27.1 mmol/L (21.6-31.8); Chloride 103 mmol/L (96-109); Globulin 2.3 g/dL (1.6-3.3); Glucose 115 mg/dL (70-110); Potassium 5.1 mmol/L (3.5-5.5); Sodium 139 mmol/L (135-145); T4, Free (Free Thyroxine) 0.95 ng/dL (0.80-1.80); Total Bilirubin 0.3 mg/dL (0.3-1.2); Total Protein 6.5 g/dL (6.2-8.2)
== END | disposition home or self-care (01) ==
LOC: LABWHC1 14:46
PROVIDERS: ATTEND Internal Medicine
DX: D86.9 Sarcoidosis, unspecified (principal); Z79.899 Other long term (current) drug therapy
CPT/HCPCS: 36415; 80053; 82164; 82607; 84439; 84443; 85025

== ENCOUNTER → 2023-07-15 | Outpatient (CLI) | payer MEDICARE, BC ==
[2023-07-15 20:28] LABS: Basophils # (A) 0.04 X 10*3/uL (0.00-0.10); Basophils % (A) 0.5 %; Eosinophils # (A) 0.18 X 10*3/uL (0.04-0.35); Eosinophils % (A) 2.4 %; HCT 36.6 % (39.6-50.0); HGB 11.7 g/dL (13.0-17.0); Lymphocytes # (A) 1.39 X 10*3/uL (0.90-5.00); Lymphocytes % (A) 18.3 %; MCH 29.7 pg (27.0-32.0); MCV 92.9 FL (80.0-97.0); Mean Platelet Volume 11.7 FL (9.5-12.2); Monocytes # (A) 0.77 X 10*3/uL (0.20-1.00); Monocytes % (A) 10.1 %; NRBC Per 100 WBC 0 X 10*3/uL (0.00-0.01); Neutrophils % (A) 68.4 %; Platelet Count 254 X 10*3/uL (140-440); RBC 3.94 X 10*6/uL (4.40-5.60); RDW 15.9 % (11.5-14.5)
== END | disposition home or self-care (01) ==
LOC: LABWHC1 13:24
PROVIDERS: ATTEND Internal Medicine
DX: D64.9 Anemia, unspecified (principal)
CPT/HCPCS: 36415; 85025

== ENCOUNTER → 2023-08-20 | Outpatient (CLI) | payer MEDICARE, BC ==
--- NOTE | 2023-08-25 21:14 | CT ---
EXAMINATION TYPE: CT chest wo con CT DLP: 624 mGycm, Automated exposure control for dose reduction was used. DATE OF EXAM: 08/20/2023 1:54 PM COMPARISON: Chest radiograph from same day. Multiple CTs of the chest with most recent on . CLINICAL INDICATION:Male, 77 years old with history of J45.50 SEVERE PERSISTENT ASTHMA, UNCOMPLICATED ; PHH, sarcoidosis TECHNIQUE: Multiple axial images were obtained through the chest. Sagittal and coronal reformats were created for review. Contrast used: mL of (None if empty) Oral contrast used: (None if empty) FINDINGS: LUNGS/ PLEURA: Bronchiectasis and peribronchiolar thickening as detailed below. Lungs are otherwise c lear. No acute airspace disease. AIRWAY: Focal area of bronchiectasis and peribronchiolar airspace disease, very small focus, right lo wer lobe superior segment. No other focus of bronchial wall thickening and associated scarring in the inferior lingula. HEART: Size within normal limits. Moderately severe coronary artery disease. MEDIASTINUM: No gross evidence of adenopathy. VASCULATURE: No aortic aneurysm. MUSCULOSKELETAL: No acute osseous abnormalities SOFT TISSUES/LYMPH NODES: Unremarkable. LOWER NECK: No significant findings. UPPER ABDOMEN: No significant findings. Cholecystectomy clips in the gallbladder fossa. IMPRESSION: 2 focal areas of airway disease, superior segment right lower lobe and inferior lingula. Atelectasis versus fibrosis versus airspace disease associated with these abnormal bronchi Follow up recommendations for incidental pulmonary nodules, if there are any, are per Rajesh?anne Villar [employer] or [employer]. [email or web address]
== END | disposition home or self-care (01) ==
LOC: RADCTMAIN 13:10
PROVIDERS: ATTEND Internal Medicine Pulmonary Disease
DX: J45.50 Severe persistent asthma, uncomplicated (principal)
CPT/HCPCS: 71250

== ENCOUNTER → 2024-02-26 | Outpatient (CLI) | payer MEDICARE, BC ==
[2024-02-26 13:16] LABS: African American GFR (CKD) >90 (>60 ml/min/1.73 sqM); Blood Urea Nitrogen 13 mg/dL (9-20); Non-African American GFR(CKD) 78 (>60 ml/min/1.73 sqM)
--- NOTE | 2024-02-26 14:30 | CT ---
EXAMINATION TYPE: CT chest w con CT DLP: 496.8 mGycm, Automated exposure control for dose reduction was used. 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 . Coronal and sagittal reformats reviewed. FINDINGS: LUNGS/ PLEURA: No pleural effusion or pneumothorax. Similar scattered regions of pleural thickening a nd subpleural scarring. Similar focal areas of bronchiectasis and peribronchiolar airspace disease wi thin the posterior right upper lobe. Similar linear scarring within the left lung base. Some trace li near subpleural atelectatic changes within the bilateral lower lobes. No changes to the left lung red emonstrated. New small right lower lobe peripheral 1 cm focal opacity (series 4, image 40). AIRWAY: Patent and unremarkable.. HEART: The heart is mildly increased in size..No pericardial effusion. Moderate coronary arterial yogi cifications. MEDIASTINUM: No evidence of adenopathy. VASCULATURE: No aortic aneurysm. Mild atherosclerotic calcification of the aorta and its branches. MUSCULOSKELETAL: No acute osseous abnormalities. Mild multilevel degenerative disc disease. Bilateral shoulder arthropathy. SOFT TISSUES/LYMPH NODES: Minimal bilateral gynecomastia. LOWER NECK: No significant findings. UPPER ABDOMEN: Gallbladder is surgically absent. IMPRESSION: Similar postsurgical changes with no significant change in posterior right upper lobe and left lower lobe regions of scarring. Additional stable scattered small subpleural regions of scarring. New subpl eural right lower lobe 1 cm opacity. Probable atelectasis. Attention on follow-up exam. [facility], , 02/26/2024 2:28 PM
== END | disposition home or self-care (01) ==
LOC: RADCTMAIN 12:16
PROVIDERS: ATTEND Internal Medicine
DX: D86.0 Sarcoidosis of lung (principal); M12.812 Other specific arthropathies, not elsewhere classified, left shoulder; M12.811 Other specific arthropathies, not elsewhere classified, right shoulder; N62 Hypertrophy of breast; I70.0 Atherosclerosis of aorta
CPT/HCPCS: 82565; 84520; 71260; 36415; Q9967

== ENCOUNTER → 2024-08-18 | Outpatient (CLI) | payer MEDICARE, BC ==
[2024-08-18 12:37] LABS: African American GFR (CKD) 85 (>60 ml/min/1.73 sqM); Blood Urea Nitrogen 25 mg/dL (9-20); Non-African American GFR(CKD) 73 (>60 ml/min/1.73 sqM)
--- NOTE | 2024-08-18 13:43 | CT ---
EXAMINATION TYPE: CT chest w con CT DLP: 453.0 mGycm, Automated exposure control for dose reduction was used. DATE OF EXAM: 08/18/2024 12:56 PM COMPARISON: Multiple CT chest with most recent 02/26/2024 CLINICAL INDICATION:Male, 78 years old with history of R91.8 OTHER NONSPECIFIC ABNORMAL FINDING OF TG NG FR91.8 OTHE; PHH, F/U history of sarcoidosis. TECHNIQUE: Multiple axial images were obtained through the chest following the administration of 100 cc of Isovue 300. . Coronal and sagittal reformats reviewed. FINDINGS: LUNGS/ PLEURA: No pleural effusion or pneumothorax. Similar scattered regions of pleural thickening a nd subpleural scarring. Similar focal areas of bronchiectasis and peribronchiolar airspace disease wi thin the posterior right upper lobe. Similar linear scarring within the left lung base. Posttreatment changes to the left lung redemonstrated. Resolution of previously demonstrated right lower lobe bruce pheral focal opacity however there is development of a medial right lower lobe pleural-based nodule m easuring up to 1.7 cm (series 4, image 33). AIRWAY: Patent and unremarkable.. HEART: The heart is mildly increased in size..No pericardial effusion. Moderate coronary arterial yogi cifications. MEDIASTINUM: No evidence of adenopathy. VASCULATURE: No aortic aneurysm. Mild atherosclerotic calcification of the aorta and its branches. MUSCULOSKELETAL: No acute osseous abnormalities. Mild multilevel degenerative disc disease. Bilateral shoulder arthropathy. SOFT TISSUES/LYMPH NODES: Minimal bilateral gynecomastia. LOWER NECK: No significant findings. UPPER ABDOMEN: Gallbladder is surgically absent. IMPRESSION: Similar postsurgical changes with no significant change in posterior right upper lobe and left lower lobe regions of scarring. Resolution of previously demonstrated right lower lobe subpleural opacity w ith development of a right lower lobe 1.7 cm pulmonary nodule. Raises concern for possible malignancy versus related to sarcoidosis. Recommend further evaluation with PET/CT. [facility], , 08/18/2024 1:41 PM
== END | disposition home or self-care (01) ==
LOC: RADCTMAIN 11:46
PROVIDERS: ATTEND Internal Medicine
DX: R91.1 Solitary pulmonary nodule (principal); R91.8 Other nonspecific abnormal finding of lung field; Z98.890 Other specified postprocedural states
CPT/HCPCS: 82565; 84520; 71260; 36415; Q9967